=== PATIENT | female | born 1995 | race African-American/Black ===

== ENCOUNTER 2017-08-29 15:36 | Emergency (ER) | payer OTHER ==
[2017-08-29] MEDS: DIPHTH,PERTUSS(ACELL),TET TOX 0.5 ML DISP.SYRIN. VAX IM (16:30)
== END 2017-08-29 16:33 | disposition home or self-care (01) ==
LOC: ER 15:36
DX: S70.362A Insect bite (nonvenomous), left thigh, initial encounter (principal); L03.116 Cellulitis of left lower limb; K21.9 Gastro-esophageal reflux disease without esophagitis; J45.909 Unspecified asthma, uncomplicated; Z91.011 Allergy to milk products; Z91.013 Allergy to seafood; W57.XXXA Bitten or stung by nonvenomous insect and other nonvenomous arthropods, initial encounter; Y93.89 Activity, other specified; Y99.8 Other external cause status; Y92.89 Other specified places as the place of occurrence of the external cause
CPT/HCPCS: 90471; 90715; 99283-25

== ENCOUNTER 2017-09-25 17:45 | Emergency (ER) | payer OTHER ==
[2017-09-25 18:05] LABS: BILIRUBIN,URINE SMALL (NEG); CLARITY,URINE CLEAR; COLOR,URINE YELLOW; GLUCOSE,URINE NEGATIVE (NEG); NITRITE,URINE NEGATIVE (NEG); PROTEIN,URINE NEGATIVE (NEG-TRACE); UROBILINOGEN,URINE 0.2 mg/dL (0.2 mg/dL)
[2017-09-25 18:13] LABS: BACTERIA,URINE MODERATE /HPF (0-FEW); RBC,URINE 0 /HPF (0-2); SQUAMOUS EPITHELIAL CELL,UR MOD /LPF; WBC,URINE 20-40 /HPF (0-4)
== END 2017-09-25 18:56 | disposition home or self-care (01) ==
LOC: ER 18:56
DX: O23.41 Unspecified infection of urinary tract in pregnancy, first trimester (principal); O99.519 Diseases of the respiratory system complicating pregnancy, unspecified trimester; J45.909 Unspecified asthma, uncomplicated; K21.9 Gastro-esophageal reflux disease without esophagitis; O99.619 Diseases of the digestive system complicating pregnancy, unspecified trimester; Z3A.01 Less than 8 weeks gestation of pregnancy; Z91.011 Allergy to milk products; Z91.013 Allergy to seafood
CPT/HCPCS: 81001; 87086; 99284

== ENCOUNTER 2017-10-10 00:51 | Emergency (ER) | payer OTHER ==
[2017-10-10 01:59] LABS: URINE HCG POC HCG POSITIVE (Negative)
[2017-10-10 02:15] LABS: BILIRUBIN,URINE SMALL (NEG); CLARITY,URINE CLOUDY; COLOR,URINE YELLOW; GLUCOSE,URINE NEGATIVE (NEG); NITRITE,URINE NEGATIVE (NEG); PH,URINE 7.5; PROTEIN,URINE 30 mg/dL (NEG-TRACE)
[2017-10-10 02:23] LABS: BACTERIA,URINE MODERATE /HPF (0-FEW); RBC,URINE 0 /HPF (0-2); SQUAMOUS EPITHELIAL CELL,UR MANY /LPF
[2017-10-10] MEDS: IV NORMAL SALINE 1000ML BAG 1,000 ML IV (02:33)
[2017-10-10 02:34] LABS: ADD MAN DIFF? NO
[2017-10-10] MEDS: ONDANSETRON PF 4 MG/2 ML VIAL. IV (02:35)
[2017-10-10 02:36] LABS: BASO % 1 % (0-3); EOS % 0 % (0-3); HEMATOCRIT 38.7 % (36.0-47.0); HEMOGLOBIN 13.4 g/dL (12.0-15.5); LYMPH # 1.5 x10^3/uL (1.0-4.8); LYMPH % 16 % (24-48); MEAN CORPUSCULAR HEMOGLOBIN 32 pg (25-35); MEAN CORPUSCULAR HGB CONC 35 g/dL (31-37); MEAN CORPUSCULAR VOLUME 92 fL (79-100); MONO # 0.6 x10^3/uL (0.0-1.1); MONO % 6 % (0-9); NEUT # 7.4 x10^3uL (1.8-7.7); NEUT % 78 % (31-73); PLATELET COUNT 262 x10^3/uL (140-400); WHITE BLOOD COUNT 9.6 x10^3/uL (4.0-11.0)
[2017-10-10] MEDS: METOCLOPRAMIDE HCL 10 MG/2 ML VIAL. IV (02:37)
[2017-10-10] MEDS: diphenhydrAMINE 50 MG/ML VIAL IVP (02:39)
[2017-10-10 03:50] LABS: ANION GAP 7 (6-14); BLOOD UREA NITROGEN 7 mg/dL (7-20); BUN/CREATININE RATIO 10 (6-20); CALCIUM 8.8 mg/dL (8.5-10.1); CARBON DIOXIDE 25 mmol/L (21-32); CHLORIDE 105 mmol/L (98-107); CREATININE 0.7 mg/dL (0.6-1.0); GFR 126.6; GLUCOSE 90 mg/dL (70-99); POTASSIUM 3.7 mmol/L (3.5-5.1); SODIUM 137 mmol/L (136-145)
[2017-10-10 03:56] LABS: ALBUMIN 3.4 g/dL (3.4-5.0); ALBUMIN/GLOBULIN RATIO 0.9 (1.0-1.7); ALK PHOS 49 U/L (46-116); ALT (SGPT) 15 U/L (14-59); AST (SGOT) 13 U/L (15-37); LIPASE 150 U/L (73-393); MAGNESIUM 2.2 mg/dL (1.8-2.4); TOTAL BILIRUBIN 0.8 mg/dL (0.2-1.0); TOTAL PROTEIN 7.3 g/dL (6.4-8.2)
== END 2017-10-10 05:30 | disposition home or self-care (01) ==
LOC: ER 00:51
DX: O21.0 Mild hyperemesis gravidarum (principal); Z3A.01 Less than 8 weeks gestation of pregnancy; K21.9 Gastro-esophageal reflux disease without esophagitis; J45.909 Unspecified asthma, uncomplicated; Z90.49 Acquired absence of other specified parts of digestive tract; Z91.011 Allergy to milk products; Z91.013 Allergy to seafood
CPT/HCPCS: 36415; 76801; 80053; 81001; 81025; 83690; 83735; 84702; 85025; 87086; 99285; 99285-25; J1200; J2405; J2765; J7030

== ENCOUNTER 2018-07-24 22:36 | Emergency (ER) | payer OTHER ==
[~2018-07-24] VITALS: Ht 162.6 cm; Wt 79.4 kg
[~2018-07-24 22:36] MED LIST: CEPH500T PO; DOXY1TAB3 PO; MUPI15CR TP; PROM25SU32 RC; PROM25TA10 PO; PROM25VI5 IJ; SULF1TAB23 PO
[2018-07-24] MEDS ORDERED: KETOROLAC 15 MG/ML VIAL. IV ONE (23:00)
[2018-07-24 23:58] LABS: BASO % 1 % (0-3); EOS # 0.1 x10^3/uL (0.0-0.7); EOS % 1 % (0-3); HEMATOCRIT 36.3 % (36.0-47.0); HEMOGLOBIN 12.3 g/dL (12.0-15.5); LYMPH # 2.1 x10^3/uL (1.0-4.8); LYMPH % 25 % (24-48); MEAN CORPUSCULAR HEMOGLOBIN 31 pg (25-35); MEAN CORPUSCULAR HGB CONC 34 g/dL (31-37); MEAN CORPUSCULAR VOLUME 92 fL (79-100); MONO # 0.5 x10^3/uL (0.0-1.1); MONO % 6 % (0-9); NEUT # 5.5 x10^3uL (1.8-7.7); NEUT % 67 % (31-73); PLATELET COUNT 271 x10^3/uL (140-400); RED BLOOD COUNT 3.94 x10^6/uL (3.50-5.40); RED CELL DISTRIBUTION WIDTH 14.2 % (11.5-14.5); WHITE BLOOD COUNT 8.2 x10^3/uL (4.0-11.0)
[2018-07-25 00:09] LABS: D-DIMER 0.49 ug/mlFEU (0.00-0.50)
[2018-07-25 00:34] LABS: CALCIUM 8.7 mg/dL (8.5-10.1); CREATININE 0.9 mg/dL (0.6-1.0); GFR 93.9; POTASSIUM 3.4 mmol/L (3.5-5.1)
[2018-07-25 00:39] LABS: ALBUMIN 3.4 g/dL (3.4-5.0); ALBUMIN/GLOBULIN RATIO 1.2 (1.0-1.7); TOTAL BILIRUBIN 0.4 mg/dL (0.2-1.0); TOTAL PROTEIN 6.2 g/dL (6.4-8.2)
--- NOTE | 2018-07-25 01:23 | PHYS DOC ---
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 Patient states right side worse with rolling over on it touching it or taking a deep breath last couple of days sharp a little cough no fever no abdominal pain last was June 17 she might. she's not sure Urine test did come back positive for in the emergency room she is not having any abdominal pain or vaginal bleeding Symptoms are mild to moderate worsening with time Review of Systems Review of Systems Constitutional: Denies fever or chills [] Eyes: Denies change in visual acuity, redness, or eye pain [] HENT: Denies nasal congestion or sore throat [] Respiratory: GI: Denies abdominal pain, nausea, vomiting, bloody stools or diarrhea [] Musculoskeletal: Denies back pain or joint pain [] Integument: Denies rash or skin lesions [] Neurologic: Denies headache, focal weakness or sensory changes [] Endocrine: Denies polyuria or polydipsia [] All other systems were reviewed and found to be within normal limits, except as documented in this note. Current Medications Current Medications Current Medications Medications (Trade) Dose Ordered Sig/Ce Start Time Stop Time Status Last Admin Dose Admin Ketorolac Tromethamine (Toradol 15mg Vial) 15 mg 1X ONCE 07/24/18 23:00 07/24/18 23:24 DC Allergies Allergies Allergies Coded Allergies Type Severity Reaction Last Updated Verified milk Allergy Severe Anaphylaxis 10/25/15 Yes shellfish derived Allergy Severe Anaphylaxis 09/30/14 Yes ibuprofen Allergy Mild 07/24/18 Yes Physical Exam Physical Exam Constitutional: Well developed, well nourished, no acute distress, non-toxic appearance. [] HENT: Normocephalic, atraumatic, bilateral external ears normal, oropharynx moist, no oral exudates, nose normal. [] Eyes: PERRLA, EOMI, conjunctiva normal, no discharge. [] Neck: Normal range of motion, no tenderness, supple, no stridor. [] Cardiovascular:Heart rate regular rhythm, no murmur [] Lungs & Thorax: Bilateral breath sounds clear to auscultation []chest wall reproducible tenderness noted on the right chest Abdomen: Bowel sounds normal, soft, no tenderness, no masses, no pulsatile masses. [] Skin: Warm, dry, no erythema, no rash. [] Extremities: No tenderness, no cyanosis, no clubbing, ROM intact, no edema. [] Neurologic: Alert and oriented X 3, normal motor function, normal sensory function, no focal deficits noted. [] Psychologic: Affect normal, judgement normal, mood normal. [] Current Patient Data Vital Signs Vital Signs Date Time Temp Pulse Resp B/P (MAP) Pulse Ox O2 Delivery O2 Flow Rate FiO2 07/24/18 22:45 98.6 95 20 100/66 (77) 96 Room Air 98.6 Lab Values Laboratory Tests Test 07/24/18 23:04 07/24/18 23:50 07/25/18 00:15 POC Urine HCG, Qualitative Hcg positive (Negative) White Blood Count 8.2 x10^3/uL (4.0-11.0) Red Blood Count 3.94 x10^6/uL (3.50-5.40) Hemoglobin 12.3 g/dL (12.0-15.5) Hematocrit 36.3 % (36.0-47.0) Mean Corpuscular Volume 92 fL (79-100) Mean Corpuscular Hemoglobin 31 pg (25-35) Mean Corpuscular Hemoglobin Concent 34 g/dL (31-37) Red Cell Distribution Width 14.2 % (11.5-14.5) Platelet Count 271 x10^3/uL (140-400) Neutrophils (%) (Auto) 67 % (31-73) Lymphocytes (%) (Auto) 25 % (24-48) Monocytes (%) (Auto) 6 % (0-9) Eosinophils (%) (Auto) 1 % (0-3) Basophils (%) (Auto) 1 % (0-3) Neutrophils # (Auto) 5.5 x10^3uL (1.8-7.7) Lymphocytes # (Auto) 2.1 x10^3/uL (1.0-4.8) Monocytes # (Auto) 0.5 x10^3/uL (0.0-1.1) Eosinophils # (Auto) 0.1 x10^3/uL (0.0-0.7) Basophils # (Auto) 0.0 x10^3/uL (0.0-0.2) Prothrombin Time 13.0 SEC (11.7-14.0) Prothrombin Time INR 1.0 (0.8-1.1) D-Dimer (Lori) 0.49 ug/mlFEU (0.00-0.50) Sodium Level 140 mmol/L (136-145) Potassium Level 3.4 mmol/L (3.5-5.1) L Chloride Level 104 mmol/L (98-107) Carbon Dioxide Level 26 mmol/L (21-32) Anion Gap 10 (6-14) Blood Urea Nitrogen 9 mg/dL (7-20) Creatinine 0.9 mg/dL (0.6-1.0) Estimated GFR (Cockcroft-Gault) 93.9 BUN/Creatinine Ratio 10 (6-20) Glucose Level 98 mg/dL (70-99) Calcium Level 8.7 mg/dL (8.5-10.1) Total Bilirubin 0.4 mg/dL (0.2-1.0) Aspartate Amino Transferase (AST) 16 U/L (15-37) Alanine Aminotransferase (ALT) 20 U/L (14-59) Alkaline Phosphatase 41 U/L (46-116) L Troponin I Quantitative < 0.017 ng/mL (0.000-0.055) Total Protein 6.2 g/dL (6.4-8.2) L Albumin 3.4 g/dL (3.4-5.0) Albumin/Globulin Ratio 1.2 (1.0-1.7) Laboratory Tests 07/24/18 23:50 Laboratory Tests 07/25/18 00:15 EKG EKG EKG shows normal sinus rhythm rate of 90 no acute ischemic changes noted QTC 427 similar to October 24, 2015[] Radiology/Procedures Radiology/Procedures [] Impressions: Chest x-ray interpreted by me normal lungs normal heart normal bone Course & Med Decision Making Course & Med Decision Making Pertinent Labs and Imaging studies reviewed. (See chart for details) []Chest wall pain d-dimer troponin EKG negative LFTs normal abdomen nontender patient is she is approximately 5 weeks by dates no lower abdominal pain or vaginal bleeding given good return precautions and advised to follow-up with a cnc maintenance mechanic regarding this new Lino Disclaimer Lino Disclaimer This electronic medical record was generated, in whole or in part, using a voice recognition dictation system. Departure Departure Impression: Primary Impression: Additional Impression: Chest pain Disposition: HOME, SELF-CARE Condition: STABLE Referrals: NO PCP (PCP) Patient Instructions: Chest Wall Pain, [id number] Additional Instructions: Her test came back positive please call your cnc maintenance mechanic for a follow -up appointment in the next 1-2 weeks return to the ER for vaginal bleeding or lower abdominal pain. Your chest pain is probably a pulled muscle or some other problem in the chest wall no evidence of blood clot pneumonia or heart problem Problem Qualifiers RODOLFO ALBARADO MD Jul 25, 2018 01:23
[2018-07-25 01:30] VITALS: BP 120/69
--- NOTE | 2018-07-25 08:26 | RAD ---
AP portable chest radiograph 07/24/2018 Clinical History: Chest pain. An AP erect portable digital radiograph of the chest was obtained. Comparison study is dated 10/12/2017. The cardiac and mediastinal silhouettes are normal in size and configuration. No acute pulmonary infiltrate is seen. No pleural effusion or pneumothorax is noted. The osseous structures are grossly intact. IMPRESSION: No acute abnormality is seen. Electronically signed by: Addison Garcia MD (07/25/2018 8:23 AM) [id number]
--- NOTE | 2018-07-25 14:46 | EKG ---
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
== END 2018-07-25 01:27 | disposition home or self-care (01) ==
LOC: ER 22:36
DX: O26.891 Other specified pregnancy related conditions, first trimester (principal); R07.89 Other chest pain; R05 Cough; O99.511 Diseases of the respiratory system complicating pregnancy, first trimester; J45.909 Unspecified asthma, uncomplicated; Z91.011 Allergy to milk products; Z91.013 Allergy to seafood; Z88.8 Allergy status to other drugs, medicaments and biological substances; Z3A.01 Less than 8 weeks gestation of pregnancy
CPT/HCPCS: 36415; 71045; 80053; 81025; 84484; 85025; 85379; 85610; 93005; 99285-25

== ENCOUNTER 2020-07-24 15:25 | Emergency (ER) | payer OTHER ==
[~2020-07-24] VITALS: Ht 162.6 cm; Wt 72.0 kg
[2020-07-24 16:19] LABS: BASO % 0 % (0-3); EOS % 0 % (0-3); HEMATOCRIT 40.3 % (36.0-47.0); HEMOGLOBIN 13.9 g/dL (12.0-15.5); LYMPH # 0.9 x10^3/uL (1.0-4.8); LYMPH % 8 % (24-48); MEAN CORPUSCULAR HEMOGLOBIN 32 pg (25-35); MEAN CORPUSCULAR HGB CONC 35 g/dL (31-37); MEAN CORPUSCULAR VOLUME 93 fL (79-100); MONO # 0.3 x10^3/uL (0.0-1.1); MONO % 3 % (0-9); NEUT # 9.1 x10^3/uL (1.8-7.7); NEUT % 88 % (31-73); PLATELET COUNT 313 x10^3/uL (140-400); RED BLOOD COUNT 4.34 x10^6/uL (3.50-5.40); RED CELL DISTRIBUTION WIDTH 13.6 % (11.5-14.5); WHITE BLOOD COUNT 10.4 x10^3/uL (4.0-11.0)
[2020-07-24 16:30] LABS: CALCIUM 9.3 mg/dL (8.5-10.1); CREATININE 0.7 mg/dL (0.6-1.0); GFR 123.4; POTASSIUM 3.9 mmol/L (3.5-5.1)
[2020-07-24] MEDS ORDERED: IV NORMAL SALINE 1000ML BAG 1,000 ML IV ONE (16:30)
[2020-07-24] MEDS ORDERED: ONDANSETRON PF 4 MG/2 ML VIAL. IVP ONE ×2 (16:30→19:00)
[2020-07-24] MEDS ORDERED: IV NORMAL SALINE 1000ML BAG 1,000 ML IV SCH (16:30)
[2020-07-24 16:35] LABS: ALBUMIN 4.6 g/dL (3.4-5.0); ALBUMIN/GLOBULIN RATIO 1.3 (1.0-1.7); TOTAL BILIRUBIN 1.5 mg/dL (0.2-1.0); TOTAL PROTEIN 8.2 g/dL (6.4-8.2)
--- NOTE | 2020-07-24 17:10 | RAD ---
Exam: Ultrasound OB less than 14 weeks Indication: Abdominal pain Technique: Real-time grayscale and color Doppler images of the pelvis were obtained by the department procurement intern. Comparisons: 10/10/2017 FINDINGS: Uterus measures 8.3 x 10.0 x 6.2 cm. Within the endometrium there is a gestational sac with internal yolk sac and pole. pole is measured at 6 mm corresponding to 6 weeks 3 days gestation. Fe oh heart rate is measured at 152 bpm Right ovary measures 5.5 x 4.0 x 4.0 cm. There is a simple cyst in the right ovary measuring up to 3. 5 cm in diameter. Left ovary measures 3.3 x 2.5 x 2.6 cm. Vascular flow identified within the ovaries bilaterally. No free fluid identified in the pelvis. IMPRESSION: 1. Single live intrauterine gestation of 6 weeks 4 days by LMP with concordant ultrasound. 2. Dedicated survey is recommended at 18-20 weeks gestation. Electronically signed by: Marisa Alejandro MD (07/24/2020 5:07 PM) [facility]OL
--- NOTE | 2020-07-24 17:15 | PHYS DOC ---
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 She denies any vaginal bleeding or abnormal vaginal discharge. She denies any concerns for sexually transmitted diseases. She states she is approximately 6 weeks 5 days . She [facility] appointment. This is her fourth baby. She s tates in her other she had hyperemesis and end up with a PICC line. Patient rates her pain a 5 out of 10. She states she has no medication to take. She states she is feeling dizzy especially when sitting up or trying to stand. Vital signs are within normal limits. Patient denies shortness of breath, syncope, headache, chest pain, vaginal bleeding, abnormal vaginal discharge, vision changes, numbness or tingling. (ALLISON SHIRLEY REJECT OPENER AND FILLER) Review of Systems: Review of Systems: Constitutional: Denies fever or chills. [] Eyes: Denies change in visual acuity. [] HENT: Denies nasal congestion or sore throat. [] Respiratory: Denies cough or shortness of breath. [] Cardiovascular: Denies chest pain or edema. [] GI: + abdominal pain, +nausea, +vomiting, denies bloody stools or diarrhea. [] : Denies dysuria. [] Musculoskeletal: Denies back pain or joint pain. [] Integument: Denies rash. [] Neurologic: Denies headache, focal weakness or sensory changes. + Dizziness [] Endocrine: Denies polyuria or polydipsia. [] Lymphatic: Denies swollen glands. [] Psychiatric: Denies depression or anxiety. [] (ALLISON SHIRLEY REJECT OPENER AND FILLER) Heart Score: C/O Chest Pain: No Risk Factors: Risk Factors: DM, Current or recent (<one month) smoker, HTN, HLP, family history of CAD, obesity. Risk Scores: Score 0 - 3: 2.5% MACE over next 6 weeks - Discharge Home Score 4 - 6: 20.3% MACE over next 6 weeks - Admit for Clinical Observation Score 7 - 10: 72.7% MACE over next 6 weeks - Early Invasive Strategies (ALLISON SHIRLEY APRN) Current Medications: Current Medications Medications (Trade) Dose Ordered Sig/Ce Start Time Stop Time Status Last Admin Dose Admin Ondansetron HCl (Zofran) 4 mg 1X ONCE 07/24/20 16:30 07/24/20 16:31 DC Sodium Chloride 1,000 ml @ 1,000 mls/hr 1X ONCE 07/24/20 16:30 07/24/20 17:29 (ALLISON SHIRLEY APRN) Allergies: Allergies: Allergies Coded Allergies Type Severity Reaction Last Updated Verified milk Allergy Severe Anaphylaxis 10/25/15 Yes shellfish derived Allergy Severe Anaphylaxis 09/30/14 Yes ibuprofen Allergy Mild 07/24/18 Yes (ALLISON SHIRLEY APRN) Physical Exam: PE: Constitutional: Well developed, well nourished, no acute distress, non-toxic appearance. [] HENT: Normocephalic, atraumatic, bilateral external ears normal, oropharynx moist, no oral exudates, nose normal. [] Eyes: PERRLA, EOMI, conjunctiva normal, no discharge. [] Neck: Normal range of motion, no tenderness, supple, no stridor. [] Cardiovascular:Heart rate regular rhythm, no murmur [] Lungs & Thorax: Bilateral breath sounds clear to auscultation [] Abdomen: Bowel sounds normal, soft, no tenderness, no masses, no pulsatile masses. [] Skin: Warm, dry, no erythema, no rash. [] Back: No tenderness, no CVA tenderness. [] Extremities: No tenderness, no cyanosis, no clubbing, ROM intact, no edema. [] Neurologic: Alert and oriented X 3, normal motor function, normal sensory function, no focal deficits noted. [] Psychologic: Affect normal, judgement normal, mood normal. Normal physical exam [] (BAFUS,ALLISON M REJECT OPENER AND FILLER) Current Patient Data: Labs: Laboratory Tests Test 07/24/20 16:01 White Blood Count 10.4 x10^3/uL (4.0-11.0) Red Blood Count 4.34 x10^6/uL (3.50-5.40) Hemoglobin 13.9 g/dL (12.0-15.5) Hematocrit 40.3 % (36.0-47.0) Mean Corpuscular Volume 93 fL (79-100) Mean Corpuscular Hemoglobin 32 pg (25-35) Mean Corpuscular Hemoglobin Concent 35 g/dL (31-37) Red Cell Distribution Width 13.6 % (11.5-14.5) Platelet Count 313 x10^3/uL (140-400) Neutrophils (%) (Auto) 88 % (31-73) H Lymphocytes (%) (Auto) 8 % (24-48) L Monocytes (%) (Auto) 3 % (0-9) Eosinophils (%) (Auto) 0 % (0-3) Basophils (%) (Auto) 0 % (0-3) Neutrophils # (Auto) 9.1 x10^3/uL (1.8-7.7) H Lymphocytes # (Auto) 0.9 x10^3/uL (1.0-4.8) L Monocytes # (Auto) 0.3 x10^3/uL (0.0-1.1) Eosinophils # (Auto) 0.0 x10^3/uL (0.0-0.7) Basophils # (Auto) 0.0 x10^3/uL (0.0-0.2) Platelet Estimate Pending Maternal Serum HCG Beta Subunit 28233 mIU/mL (0-5) H Sodium Level 139 mmol/L (136-145) Potassium Level 3.9 mmol/L (3.5-5.1) Chloride Level 102 mmol/L (98-107) Carbon Dioxide Level 26 mmol/L (21-32) Anion Gap 11 (6-14) Blood Urea Nitrogen 9 mg/dL (7-20) Creatinine 0.7 mg/dL (0.6-1.0) Estimated GFR (Cockcroft-Gault) 123.4 BUN/Creatinine Ratio 13 (6-20) Glucose Level 92 mg/dL (70-99) Calcium Level 9.3 mg/dL (8.5-10.1) Total Bilirubin 1.5 mg/dL (0.2-1.0) H Aspartate Amino Transferase (AST) 14 U/L (15-37) L Alanine Aminotransferase (ALT) 20 U/L (14-59) Alkaline Phosphatase 49 U/L (46-116) Total Protein 8.2 g/dL (6.4-8.2) Albumin 4.6 g/dL (3.4-5.0) Albumin/Globulin Ratio 1.3 (1.0-1.7) Lipase 69 U/L (73-393) L Laboratory Tests 07/24/20 16:01 Laboratory Tests 07/24/20 16:01 Vital Signs: Vital Signs Date Time Temp Pulse Resp B/P (MAP) Pulse Ox O2 Delivery O2 Flow Rate FiO2 07/24/20 15:55 99.1 61 12 129/97 (108) 100 Room Air 99.1 (ALLISON SHIRLEY APRN) EKG: EKG: [] (ALLISON SHIRLEY APRN) Radiology/Procedures: Radiology/Procedures: [] Impression: [facility] [address] [place] [address] IMAGING REPORT Signed PATIENT: FADI RINALDI LACCOUNT: [id number] : 1995 LOCATION: ER AGE: 25 SEX: F EXAM STATUS: REG ER ORD. PHYSICIAN: ALLISON SHIRLEY APRN REASON: ABDOMINAL PAIN PROCEDURE: OB < 14 WKS Exam: Ultrasound OB less than 14 weeks Indication: Abdominal pain Technique: Real-time grayscale and color Doppler images of the pelvis were obtained by the department on air personality. Comparisons: 10/10/2017 FINDINGS: Uterus measures 8.3 x 10.0 x 6.2 cm. Within the endometrium there is a gestational sac with internal yolk sac and pole. pole is measured at 6 mm corresponding to 6 weeks 3 days gestation. heart rate is measured at 152 bpm Right ovary measures 5.5 x 4.0 x 4.0 cm. There is a simple cyst in the right ovary measuring up to 3.5 cm in diameter. Left ovary measures 3.3 x 2.5 x 2.6 cm. Vascular flow identified within the ovaries bilaterally. No free fluid identified in the pelvis. IMPRESSION: 1. Single live intrauterine gestation of 6 weeks 4 days by LMP with concordant ultrasound. 2. Dedicated survey is recommended at 18-20 weeks gestation. Electronically signed by: Marisa Garza MD (07/24/2020 5:07 PM) [facility] DICTATED and SIGNED BY: MARISA GARZA MD DATE: 07/24/20 [id number] (ALLISON SHIRLEY APRN) Course & Med Decision Making: Course & Med Decision Making Pertinent Labs and Imaging studies reviewed. (See chart for details) See HPI. Alert and oriented x4. Ambulatory with a steady gait. Abdomen is soft and nontender. Ultrasound shows no acute findings. Speaks in full clear sentences. Vital signs are within normal limits. No extremity edema. Patient is given Zofran and 2 L of normal saline in the ED. Blood work is unremarkable. Blood work unremarkable. She has had 2 L of normal saline. Vital signs remained stable. She is at 2 doses of Zofran. Patient is still eating and very nauseated. She is admitted for hyperemesis. Patient is admitted to Dr. Almeida. I will consult OB. [] (ALLISON SHIRLEY APRN) Dragon Disclaimer: Lino Disclaimer: This electronic medical record was generated, in whole or in part, using a voice recognition dictation system. (ALLISON SHIRLEY APRN) Departure Departure Impression: Primary Impression: Hyperemesis Additional Impressions: Marijuana abuse Trichomoniasis of bladder Disposition: ADMITTED INPATIENT Admitting Physician: OMKAR (ALLISON SHIRLEY APRN) Condition: STABLE Referrals: NO PCP (PCP) Attending Signature Attending Signature I have participated in the care of this patient and I have reviewed and agree with all pertinent clinical information above including history, exam, and recommendations. (ANICETO KWAN DO) ALLISON SHIRLEY APRN Jul 24, 2020 17:15 ANICETO KWAN DO Jul 25, 2020 13:21
[2020-07-24 18:30] VITALS: BP 99/57
[2020-07-24 19:15] LABS: BILIRUBIN,URINE NEGATIVE (NEG); CLARITY,URINE CLEAR; COLOR,URINE YELLOW; NITRITE,URINE NEGATIVE (NEG); PROTEIN,URINE 30 mg/dL (NEG-TRACE); UROBILINOGEN,URINE 0.2 mg/dL (0.2 mg/dL)
[2020-07-24 19:22] LABS: BARBITURATES NEG (NEG); BENZODIAZEPINES NEG (NEG); CANNABINOIDS POS (NEG); COCAINE NEG (NEG); METHADONE NEG (NEG); OPIATES NEG (NEG); PHENCYCLIDINE NEG (NEG)
[2020-07-24 19:23] LABS: AMPHETAMINE/METHAMPHETAMINE NEG (NEG)
[2020-07-24 19:30] LABS: TRICHOMONAS,URINE PRESENT
[2020-07-24 19:35] LABS: BACTERIA,URINE FEW /HPF (0-FEW)
[2020-07-24] MEDS ORDERED: ONDANSETRON PF 4 MG/2 ML VIAL. IVP SCH (19:45)
[2020-07-24] MEDS ORDERED: METOCLOPRAMIDE HCL 10 MG/2 ML VIAL. IVP ONE (19:45)
[2020-07-24 19:59] LABS: % BASOS 1 % (0-3); % LYMPHS 7 % (24-48); % MONOS 8 % (0-10); % SEGS 84 % (35-66)
[2020-07-24 20:00] LABS: PLT ESTIMATE ADEQUATE (ADEQUATE)
[2020-07-24 20:01] LABS: TEAR DROP CELLS FEW
== END 2020-07-24 21:30 | disposition left against medical advice (07) ==
LOC: ER 15:25
DX: O21.0 Mild hyperemesis gravidarum (principal); Z3A.01 Less than 8 weeks gestation of pregnancy; A59.03 Trichomonal cystitis and urethritis; F12.10 Cannabis abuse, uncomplicated; J45.909 Unspecified asthma, uncomplicated; Z90.49 Acquired absence of other specified parts of digestive tract; Z91.013 Allergy to seafood; Z91.011 Allergy to milk products; Z88.8 Allergy status to other drugs, medicaments and biological substances
CPT/HCPCS: 36415; 76801; 80053; 80307; 81001; 83690; 84702; 85007; 85025; 86850; 86900; 86901; 87086; 96361; 96374; 96375; 96376; 99285; J2405; J2765; J7030

== ENCOUNTER 2021-04-21 12:14 | Emergency (ER) | payer SELFPAY | END 2021-04-21 13:07 | disposition left against medical advice (07) | LOC: ER 12:14 | DX: R10.9 Unspecified abdominal pain (principal); Z53.21 Procedure and treatment not carried out due to patient leaving prior to being seen by health care provider ==